=== PATIENT | female | born 2005 | race African-American/Black ===

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

== ENCOUNTER 2024-03-19 17:07 | Emergency (ER) | payer MEDICAID ==
[~2024-03-19] VITALS: Ht 167.6 cm; Wt 79.3 kg
[~2024-03-19 17:07] MED LIST: CEPH500T MT; IBUP-2029 PO; IBUP-2030 MT; SULF1TAB48 MT
[2024-03-19 17:20] VITALS: TEMP 36.7; O2SAT 99
[2024-03-19] MEDS ORDERED: IBUP-2030 MT (17:54)
[2024-03-19] MEDS ORDERED: TOPUD MT (17:54)
[2024-03-19 18:16] VITALS: BP 124/86; PULSE 126; RESP 18; TEMP 98.1
[2024-03-19] MEDS: ACETAMINOPHEN 325MG TABLET PO ONE (18:16)
[2024-03-19] MEDS: IBUPROFEN 800MG TABLET PO ONE (18:16)
[2024-03-19] MEDS ORDERED: DOXY25TA61 MT (18:38)
[2024-03-19] MEDS ORDERED: NIRM1TAB6 PO (19:09)
== END 2024-03-19 19:03 | disposition home or self-care (01) ==
LOC: ER 17:17
DX: U07.1 COVID-19 (principal); Z79.899 Other long term (current) drug therapy
CPT/HCPCS: 81025; 87426; 87804; 99283